=== PATIENT | female | born 1950 | race Caucasian/White ===

== ENCOUNTER 2022-11-25 04:33 | Day surgery (SDC) | payer OTHER ==
[2022-11-20 12:36] VITALS: BMI 26.4
[2022-11-25 11:34] VITALS: TEMP 98
[2022-11-25 12:11] VITALS: BP 129/67; PULSE 67; RESP 17
== END 2022-11-25 12:16 | disposition home or self-care (01) ==
LOC: JASU-ENDO 04:33
PROVIDERS: ATTEND Internal Medicine Gastroenterology
PROC: 0DBC8ZX Excision of Ileocecal Valve, Via Natural or Artificial Opening Endoscopic, Diagnostic (ICD-10-PCS; principal; 2022-11-25 11:00)
DX: Z12.11 Encounter for screening for malignant neoplasm of colon (principal); D17.5 Benign lipomatous neoplasm of intra-abdominal organs; K64.8 Other hemorrhoids; K57.30 Diverticulosis of large intestine without perforation or abscess without bleeding; Z80.0 Family history of malignant neoplasm of digestive organs; Z86.010 Personal history of colon polyps
CPT/HCPCS: 88305-TC